=== PATIENT | female | born 1965 | race Caucasian/White ===

== ENCOUNTER 2018-01-04 21:11 | Observation (INO) ==
[2018-01-04 21:56] LABS: Basophils # 0.1 K/mm3 (0-0.2); Basophils % 1.2 % (0.1-2.0); Eosinophils # 0.2 K/mm3 (0.0-0.4); Eosinophils % 3.2 % (0.1-12.0); Hematocrit 41.9 % (37.0-47.0); Hemoglobin 13.6 g/dL (12.2-16.2); Lymphocytes # 2.4 K/mm3 (0.7-4.5); Lymphocytes % 34.5 K/mm3 (10-50); Mean Corpuscular HGB Conc 32.4 g/dL (31.8-35.4); Mean Corpuscular Hemoglobin 28.8 pg (27.0-31.2); Mean Platelet Volume 7.7 fl (7.4-10.4); Monocytes # 0.4 K/mm3 (0.1-1.0); Monocytes % 5.3 % (1.7-9.3); Neutrophils # 3.8 K/mm3 (1.8-7.8); Neutrophils % 55.9 % (37.0-80.0); Platelet Count 302 K/mm3 (142-424); Red Blood Count 4.71 M/mm3 (4.20-5.40); Red Cell Distribution Width 13.6 % (11.5-17.5); White Blood Count 6.9 K/mm3 (4.8-10.8)
[2018-01-04 22:09] LABS: Anion Gap 9.5 mEq/L (5-15); Blood Urea Nitrogen 13 mg/dL (7-18); Carbon Dioxide 30 mmol/L (21.0-32.0); Chloride 106 mmol/L (98-107); Glucose 111 mg/dL (74-106); Potassium 3.5 mmoL/L (3.5-5.1); Sodium 142 mmol/L (136-145)
--- NOTE | 2018-01-04 22:30 | Emergency Department Note ---
ED Disposition Clinical Impression: Chest pain Qualifiers: Chest pain type: precordial pain Qualified Code(s): R07.2 - Precordial pain Disposition: Admitted as Observation Condition on Discharge: Good Referrals: Melquiades Pham MD [Primary Care Provider] - - Critical Care Critical Care Time: No Attestation: On 01/04/18, the high probability of a clinically significant, sudden or life threatening deterioration of the following system(s) required my full and direct attention, intervention and personal management. The time I documented below is in addition to time spent performing reported procedures but includes the following listed in this critical care notation. Medical Decision Making - Medical Records Medical records reviewed: Yes: I reviewed the patient's medical records. - Boo Inquiry Pt receiving controlled substance: No Vital Signs: 01/04/18 21:13 01/04/18 23:08 Temperature 98.2 F Temperature Source Oral Pulse Rate [Right Brachial] 83 80 Respiratory Rate 14 15 Blood Pressure [Right Arm] 151/66 138/81 Blood Pressure Mean [Right Arm] 94 100 02 Sat by Pulse Oximetry 94 L 94 L - Lab Data Lab results reviewed: Yes: I reviewed the patient's lab results. Lab Results 01/04/18 21:45: WBC 6.9, RBC 4.71, Hgb 13.6, Hct 41.9, MCV 89.0, MCH 28.8, MCHC 32.4, RDW 13.6, Plt Count 302, MPV 7.7, Neut % (Auto) 55.9, Lymph % (Auto) 34.5, [place] % (Auto) 5.3, Eos % (Auto) 3.2, Baso % (Auto) 1.2, Neut # (Auto) 3.8, Lymph # (Auto) 2.4, [place] # (Auto) 0.4, Eos # (Auto) 0.2, Baso # (Auto) 0.1 01/04/18 21:45: Sodium 142, Potassium 3.5, Chloride 106, Carbon Dioxide 30, Anion Gap 9.5, BUN 13, Creatinine 0.74, Estimated Creat Clear 107, Estimated GFR 82, Est GFR ( Amer) 99, Glucose 111 H, Calcium 9.0, Troponin I < 0.02 01/04/18 21:45: ESR 20 Result diagrams: 01/04/18 21:45 01/04/18 21:45 Orders (Tests/Meds): ORDERS Category Date Time Status CT head/brain wo con Stat Cat Scan 01/04/18 22:29 Taken XR chest 2V Stat Exams 01/04/18 21:40 Taken ECG Request by /Juan Alberto Stat Y 01/04/18 21:40 Ordered - Radiology Data #1 Image(s): Chest Image Reviewed: Yes I reviewed the patient's radiology image Preliminary Findings: Normal/NAD - ECG Data Tracing #1 I reviewed this ECG and interpreted as documented below: Normal Sinus Rhythm: Yes Ischemic changes: non-specific ST-T wave changes ECG compared to prior tracings: there are no prior tracings available for comparison - Physician Consults Physician Consulted: jarett Reason -: Admission Chest Pain HPI - General Chief Complaint: Chest Pain Stated Complaint: light headed Time Seen by Provider: 01/04/18 21:30 Mode of Arrival: Ambulatory Source of Information: Patient, Medical Record Limitations: No Limitations Description of Symptoms (Recalled from ER Triage Doc. by RN): CP EARLIER TODAY THAT LASTED 10 MIN, REPORTS IT A CRUSHING AND FELT HEAVINESS AND NUMBNESS IN LEFT ARM. REPORTS THE HEAVINESS IS STILL PRESENT IN LEFT ARM - History of Present Illness HPI narrative: pt with acute onset of ant chest pain this am which is new and lasted 10 min and felt vice -like - pt with no known card dis and this pain resolved but she felt dizzy and no syncope and heaviness lt upper ext - these other sx have persisted with no speech or visual sx and no other neuro sx MD complaint: chest pain indicative of cardiac Onset (ago): hour(s) Duration: now resolved Activity at onset: light activity Pain location: substernal Quality: tightness Pain radiation: LUE Relieving factors: nothing Risk Factors for CAD: Family Hx of CAD Treatments prior to or on arrival for Cardiac Chest Pain: none - BENNETT Score Non-Stemi Age of patient: Less than 65 yrs Number of risk factors for CAD: Presence of less than 3 Prior coronary artery stenosis(seen in coronary angiography): Less than 50% ST-Segment deviation on ECG (more than 1 min): Absent Prior aspirin intake: No ASA in the last 7 days Severe anginal chest pain: No or one episode in last 24 hours Elevated cardiac markers(CK-MB or troponin): Absent Non-Stemi Risk Score: 0 - Related Data On Oral Contraceptives: No Home Medications Medication Instructions Recorded Confirmed Levothyroxine Sodium [Synthroid 175 mcg PO DAILY 01/04/18 01/04/18 175mcg (0.175mg) tablet] Zolpidem Tartrate [Ambien 10mg 10 mg PO HS PRN 01/04/18 01/04/18 tablet] Allergies Allergy/AdvReac Type Severity Reaction Status Date / Time No Known Allergies Allergy Verified 01/04/18 21:37 [facility] History I have reviewed the patient's past medical history: Yes ROS Obtained: Yes All systems reviewed & no additional complaints - Constitutional Constitutional: Denies fever(s) - Eyes Eyes: Denies change in vision - ENT Ears, Nose, Mouth, and Throat: Denies sore throat - Cardiovascular Cardiovascular: Reports chest pain, Denies dyspnea, Reports radiating jaw, neck or arm pain, Denies rapid heart rate - Respiratory Respiratory: No cough - Gastrointestinal Gastrointestingal: Denies: abdominal pain - Genitourinary Female Genitourinary: Denies hematuria - Musculoskeletal Musculoskeletal: Denies joint pain - Integumentary/Breasts Skin/Breast: Denies rash - Neurologic Neurologic: Denies headache(s), Denies seizure-like activity Physical Exam - General General appearance: alert, in no apparent distress - Head Head exam: normocephalic - Eye Eye exam: Present: PERRL, EOMI - ENT ENT exam: Present: mucous membranes moist - Neck Neck exam: Present: trachea midline - Respiratory Respiratory exam: Absent: respiratory distress - Cardiovascular Cardiovascular exam: Present: regular rate, systolic murmur - Abdominal Exam Abdominal exam: Present: soft - Extremities Exam Extremities exam: Absent: calf tenderness - Neurological Exam Neurological exam: Present: alert, oriented X3, CN II-XII intact - Psychiatric Psychiatric exam: Present: normal affect - Skin Skin exam: Absent: rash
[2018-01-05 06:44] LABS: Basophils # 0.1 K/mm3 (0-0.2); Basophils % 1.5 % (0.1-2.0); Eosinophils # 0.2 K/mm3 (0.0-0.4); Eosinophils % 3.6 % (0.1-12.0); Hematocrit 41.1 % (37.0-47.0); Lymphocytes % 40.2 K/mm3 (10-50); Mean Corpuscular HGB Conc 31.7 g/dL (31.8-35.4); Mean Corpuscular Hemoglobin 28.2 pg (27.0-31.2); Mean Corpuscular Volume 89.1 fl (81-99); Mean Platelet Volume 7.8 fl (7.4-10.4); Monocytes # 0.3 K/mm3 (0.1-1.0); Monocytes % 6.6 % (1.7-9.3); Neutrophils # 2.3 K/mm3 (1.8-7.8); Neutrophils % 48.2 % (37.0-80.0); Platelet Count 275 K/mm3 (142-424); Red Blood Count 4.62 M/mm3 (4.20-5.40); Red Cell Distribution Width 13.5 % (11.5-17.5); White Blood Count 4.8 K/mm3 (4.8-10.8)
[2018-01-05 07:01] LABS: Anion Gap 9.4 mEq/L (5-15); Calcium 8.4 mg/dL (8.5-10.1); Chol/HDL Ratio 2.6 (1-3.5); Potassium 3.4 mmoL/L (3.5-5.1)
--- NOTE | 2018-01-05 07:33 | Pharmacy Consult Notes ---
[facility] Pharmacy VTE Monitoring - Patient Demographics Admission date: 01/04/18 Report Date: 01/05/18 Time: 07:33 Allergies/Adverse Reactions: Patient Allergies No Known Allergies Allergy (Verified 01/04/18 21:37) Height: 1.52 m Weight: 81.193 kg Patient Problems: Current Active Problems Chest pain (Acute) - VTE Risk Labs: VTE Related Lab Results Hgb 13.0 g/dL (12.2-16.2) 01/05/18 05:45 Hct 41.1 % (37.0-47.0) 01/05/18 05:45 Plt Count 275 K/mm3 (142-424) 01/05/18 05:45 BUN 10 mg/dL (7-18) 01/05/18 05:45 Creatinine 0.70 mg/dL (0.55-1.02) 01/05/18 05:45 Estimated Creat Clear 119 mL/min (0-300) 01/05/18 05:45 Was VTE Risk Assessment Performed: Yes VTE Score: 2 VTE Risk Level: Low Risk - Prophylaxis VTE Prophylaxis Ordered?: Yes Types of VTE Prophylaxis: TEDS Knee High Location of Applied Device: Bilateral Lower Extremeties - VTE Diagnosis Confirmed Treatment or plan recommended: Continue Current Treatment
--- NOTE | 2018-01-05 07:43 | Consult Report ---
Addendum entered and electronically signed by BERNICE Salas 01/05/18 15:16: Echo shows preserved LVEF without wall motion abnormalities. GXT myoview, EKG portion nondiagnostic due to baseline abnormalities and the myoview images show no ischemia with normal LVEF. OK for discharge home from Cardiology standpoint. Add ASA 81 mg daily and follow up in 2 wks Original Note: History of Present Illness Consult date: 01/05/18 Requesting physician: Melquiades Pham Consult reason: chest pain Chief complaint: Chest pain Additional Medical History:: 1. 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 Symptoms were not associated with shortness of breath, nausea, vomiting or diaphoresis. After the chest pain resolved patient was left with some dizziness and left arm discomfort. She did come to the emergency department for further evaluation. CT of the head revealed no acute changes. Chest x-ray was unremarkable. Troponins have returned normal overnight. Patient does have an abnormal EKG with lateral ischemia with no old EKGs for comparison. The 2 EKGs obtained overnight showed no change. Patient denies any history of tobacco use or treatment for diabetes, hypertension or hyperlipidemia. There is no s ignificant family history of coronary artery disease. Patient was admitted for observation overnight. Cardiology consulted for evaluation recommendations. This a.m. the patient relates no further episode of chest discomfort however she does continue to have some left arm heaviness feeling. [facility] History Medical History: Reports:: Heart Murmur Denies:: Cancer, Diabetes Mellitus Type 1, Diabetes Mellitus Type 2, MRSA Other Medical History: Reports: Anemia Other Surgeries: Yes: Amputation: No Fractures: No - *Social History Educational Level: Completed College Smoking Status: Never smoker Alcohol Intake: never Occupational Status: employed Housing: house Household Members: none - Psychiatric History Expresses thoughts of harming self/others: None Suicide Plan Description: No Plan *Family Hx:: Anemia, Cancer, Hyperlipidemia, Hypertension, Thyroid Disorder Meds Home Medications Medication Instructions Recorded Confirmed Type Levothyroxine Sodium [Synthroid 175 mcg PO DAILY 01/04/18 01/05/18 History 175mcg (0.175mg) tablet] Zolpidem Tartrate [Ambien 10mg 10 mg PO HS PRN 01/04/18 01/05/18 History tablet] Sumatriptan Succ/Naproxen Sod 1 each PO NEEDED PRN 01/05/18 01/05/18 History [Treximet 10-60 mg Tablet] Allergies Allergy/AdvReac Type Severity Reaction Status Date / Time No Known Allergies Allergy Verified 01/04/18 21:37 Review of Systems - *Cardiovascular Reports chest pain, Denies shortness of breath, Denies shortness of breath with activity - *Respiratory Denies cough, Denies shortness of breath, Denies shortness of breath with activity - *Gastrointestinal Denies abdominal pain, Denies change in stools, Denies black, tarry stools - *Genitourinary Denies blood in urine - *Musculoskeletal Denies joint pain - *Neurologic Denies headache(s), Denies seizure-like activity Exam Vital signs and Labs for Last 24 Hours: Temp Pulse Resp BP Pulse Ox 98.3 F 70 18 153/72 93 L 01/05/18 00:57 01/05/18 04:00 01/05/18 00:57 01/05/18 00:57 01/05/18 01:23 Laboratory Results - last 24 hr 01/04/18 21:45: WBC 6.9, RBC 4.71, Hgb 13.6, Hct 41.9, MCV 89.0, MCH 28.8, MCHC 32.4, RDW 13.6, Plt Count 302, MPV 7.7, Neut % (Auto) 55.9, Lymph % (Auto) 34.5, [place] % (Auto) 5.3, Eos % (Auto) 3.2, Baso % (Auto) 1.2, Neut # (Auto) 3.8, Lymph # (Auto) 2.4, [place] # (Auto) 0.4, Eos # (Auto) 0.2, Baso # (Auto) 0.1 01/04/18 21:45: Sodium 142, Potassium 3.5, Chloride 106, Carbon Dioxide 30, Anion Gap 9.5, BUN 13, Creatinine 0.74, Estimated Creat Clear 107, Estimated GFR 82, Est GFR ( Amer) 99, Glucose 111 H, Calcium 9.0, Troponin I < 0.02 01/04/18 21:45: ESR 20 01/05/18 02:53: Troponin I < 0.02 01/05/18 05:45: Troponin I < 0.02 01/05/18 05:45: WBC 4.8 D, RBC 4.62, Hgb 13.0, Hct 41.1, MCV 89.1, MCH 28.2, MCHC 31.7 L, RDW 13.5, Plt Count 275, MPV 7.8, Neut % (Auto) 48.2, Lymph % (Auto) 40.2, [place] % (Auto) 6.6, Eos % (Auto) 3.6, Baso % (Auto) 1.5, Neut # (Auto) 2.3, Lymph # (Auto) 2.0, [place] # (Auto) 0.3, Eos # (Auto) 0.2, Baso # (Auto) 0.1 01/05/18 05:45: Sodium 144, Potassium 3.4 L, Chloride 109 H, Carbon Dioxide 29, Anion Gap 9.4, BUN 10, Creatinine 0.70, Estimated Creat Clear 119, Estimated GFR 88, Est GFR ( Amer) 106, Glucose 97, Calcium 8.4 L, Triglycerides 53, Cholesterol 159, LDL Cholesterol 87, VLDL Cholesterol 11, HDL Cholesterol 61, Cholesterol/HDL Ratio 2.6 I & O for Last 24 hours: Intake & Output 01/02/18 01/03/18 01/04/18 01/05/18 11:59 11:59 11:59 11:59 Weight 179 lb - *Routine Neck Exam Present: supple. Absent: JVD, carotid bruit - Routine Chest/Breast/Axilla Exam Chest wall: Present: tenderness - *Routine Respiratory Exam Present: CTA bilaterally. Absent: accessory muscle use, rales, rhonchi, wheezes - *Routine Cardiovascular Exam Present: RRR, murmur. Absent: gallop, rubs Comments: Soft grade 1 out of 6 to 2 out of 6 systolic ejection murmur noted at the left sternal border without radiation. - *Routine Abdominal Exam Present: soft. Absent: tenderness, distended, guarding - *Routine Extremities Exam Absent: edema, calf tenderness - *Routine Neurological Exam Present: alert, oriented X3, moving all extremities Assessment and Plan (1) Abnormal EKG Current visit: Yes Status: Acute Category: Medical Code(s): R94.31 - Abnormal electrocardiogram [ECG] [EKG] (2) Cardiac murmur Current visit: Yes Status: Acute Category: Medical Code(s): R01.1 - Cardiac murmur, unspecified (3) Hypothyroidism Current visit: Yes Status: Acute Category: Medical Code(s): E03.9 - Hypothyroidism, unspecified (4) Chest pain Current visit: Yes Status: Acute Qualifiers: Chest pain type: precordial pain Qualified Code(s): R07.2 - Precordial pain Category: Medical Code(s): R07.9 - Chest pain, unspecified - Assessment and plan all Dx Assessment and Plan for all problems:: 1. Atypical chest pain with a BENNETT score of 0. With the patient's abnormal EKG will obtain an echocardiogram to evaluate for etiology of cardiac murmur along with left ventricular ejection fraction and wall motion. 2. Will have the patient perform an exercise Myoview due to abnormal EKG. 3. Pending the above results, further recommendations to follow.
--- NOTE | 2018-01-05 08:37 | History & Physical Report ---
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 Symptoms were not associated with shortness of breath, nausea, vomiting or diaphoresis. The pain lasted approx 10 minutes and resolved on its own. After the chest pain resolved, the patient was left with some dizziness and left arm paresthesias. She did come to the emergency department for further evaluation. CT of the head revealed no acute changes. Chest x-ray was normal. Cardiology was consulted. Her troponins have been normal. She does have an abnormal EKG with lateral ischemia with no old EKGs for comparison. The 2 EKGs obtained overnight showed no change. She denies any history of tobacco use and there is no significant family history of coronary artery disease. She has had no further episodes of chest discomfort, however she does continue to have some left arm paresthesias. [facility] [place] History Medical History: Reports:: Heart Murmur, Migraine Denies:: Cancer, Diabetes Mellitus Type 1, Diabetes Mellitus Type 2, MRSA Other Medical History: Reports: Anemia, Hypothyroidism Other Surgeries: Yes: , Tubal Ligation Amputation: No Fractures: No - *Social History Educational Level: Completed College Smoking Status: Never smoker Alcohol Intake: never Occupational Status: employed Housing: house Household Members: none - Psychiatric History Expresses thoughts of harming self/others: None Suicide Plan Description: No Plan *Family Hx:: Anemia, Cancer, Hyperlipidemia, Hypertension, Thyroid Disorder Review of Systems - Constitutional Denies fatigue, Denies weakness - Eyes Denies blurry vision, Denies double vision - ENT Denies nasal congestion, Denies sore throat - *Cardiovascular Reports chest pain, Denies rapid, pounding, or irregular heartbeat - *Respiratory Denies cough, Denies shortness of breath - *Gastrointestinal Denies abdominal pain, Denies loose stools, Denies nausea, Denies vomiting - *Genitourinary Denies difficulty urinating, Denies painful urination - *Musculoskeletal Denies joint pain - *Neurologic Reports headache(s), Reports tingling/numbness/burning sensations (left arm), Reports dizziness, Denies seizure-like activity Meds Home Medications Medication Instructions Recorded Confirmed Type Levothyroxine Sodium [Synthroid 175 mcg PO DAILY 01/04/18 01/05/18 History 175mcg (0.175mg) tablet] Zolpidem Tartrate [Ambien 10mg 10 mg PO HS PRN 01/04/18 01/05/18 History tablet] Sumatriptan Succ/Naproxen Sod 1 each PO NEEDED PRN 01/05/18 01/05/18 History [Treximet 10-60 mg Tablet] Allergies Allergy/AdvReac Type Severity Reaction Status Date / Time No Known Allergies Allergy Verified 01/04/18 21:37 Exam Vital signs and Labs for Last 24 Hours: Temp Pulse Resp BP Pulse Ox 97.5 F L 64 16 112/57 96 01/05/18 04:00 01/05/18 04:00 01/05/18 04:00 01/05/18 04:00 01/05/18 04:00 Laboratory Results - last 24 hr 01/04/18 21:45: WBC 6.9, RBC 4.71, Hgb 13.6, Hct 41.9, MCV 89.0, MCH 28.8, MCHC 32.4, RDW 13.6, Plt Count 302, MPV 7.7, Neut % (Auto) 55.9, Lymph % (Auto) 34.5, [place] % (Auto) 5.3, Eos % (Auto) 3.2, Baso % (Auto) 1.2, Neut # (Auto) 3.8, Lymph # (Auto) 2.4, [place] # (Auto) 0.4, Eos # (Auto) 0.2, Baso # (Auto) 0.1 01/04/18 21:45: Sodium 142, Potassium 3.5, Chloride 106, Carbon Dioxide 30, Anion Gap 9.5, BUN 13, Creatinine 0.74, Estimated Creat Clear 107, Estimated GFR 82, Est GFR ( Amer) 99, Glucose 111 H, Calcium 9.0, Troponin I < 0.02 01/04/18 21:45: ESR 20 01/05/18 02:53: Troponin I < 0.02 01/05/18 05:45: Troponin I < 0.02 01/05/18 05:45: WBC 4.8 D, RBC 4.62, Hgb 13.0, Hct 41.1, MCV 89.1, MCH 28.2, MCHC 31.7 L, RDW 13.5, Plt Count 275, MPV 7.8, Neut % (Auto) 48.2, Lymph % (Auto) 40.2, [place] % (Auto) 6.6, Eos % (Auto) 3.6, Baso % (Auto) 1.5, Neut # (Auto) 2.3, Lymph # (Auto) 2.0, [place] # (Auto) 0.3, Eos # (Auto) 0.2, Baso # (Auto) 0.1 01/05/18 05:45: Sodium 144, Potassium 3.4 L, Chloride 109 H, Carbon Dioxide 29, Anion Gap 9.4, BUN 10, Creatinine 0.70, Estimated Creat Clear 119, Estimated GFR 88, Est GFR ( Amer) 106, Glucose 97, Calcium 8.4 L, Triglycerides 53, Cholesterol 159, LDL Cholesterol 87, VLDL Cholesterol 11, HDL Cholesterol 61, Cholesterol/HDL Ratio 2.6 I & O for Last 24 hours: Intake & Output 01/02/18 01/03/18 01/04/18 01/05/18 11:59 11:59 11:59 11:59 Weight 179 lb - Constitutional no acute distress - *Routine HEENT Exam Head: Present: normocephalic, atraumatic Eye: Present: EOMI, PERRL ENT: Present: mucous membranes moist - *Routine Neck Exam Present: supple, full ROM - *Routine Respiratory Exam Present: CTA bilaterally - *Routine Cardiovascular Exam Present: RRR (1/6 systolic murmur) - *Routine Abdominal Exam Present: soft, normoactive bowel sounds. Absent: tenderness - *Routine Extremities Exam Absent: edema - *Routine Skin Exam Present: intact - *Routine Neurological Exam Present: alert, oriented X3 H&P: Result - Impressions Head CT and CXR showed nothing acute. Assessment and Plan (1) Chest pain Current visit: Yes Status: Acute Qualifiers: Chest pain type: precordial pain Qualified Code(s): R07.2 - Precordial pain Category: Medical Code(s): R07.9 - Chest pain, unspecified (2) Abnormal EKG Current visit: Yes Status: Acute Category: Medical Code(s): R94.31 - Abnormal electrocardiogram [ECG] [EKG] (3) Cardiac murmur Current visit: Yes Status: Chronic Category: Medical Code(s): R01.1 - Cardiac murmur, unspecified (4) Hypothyroidism Current visit: Yes Status: Chronic Category: Medical Code(s): E03.9 - Hypothyroidism, unspecified - Assessment and plan all Dx Assessment and Plan for all problems:: Cardiology has seen the patient and ordered an echo. Will await further recommendations per cardiology.
--- NOTE | 2018-01-05 16:02 | Cardiology Report ---
PROCEDURE: 2-D M-mode and color Doppler study INDICATIONS FOR THE TEST: Chest pain + COPD Heart Murmur+ Tobacco Smoking Palpitations Fatigue+ Syncope Edema Hypertension Diabetes Mellitus Rheumatic Fever SOB RIDER Obesity Hyperlipidemia Family History HD+ Additional History chest heaviness, lt arm numbness, MVP PATIENT INFORMATION HEIGHT: 62 WEIGHT: 170 GENDER: Female B/P: 151/66 2-D/M-MODE INTERPRETATION: 2-D MEASUREMENTS OBSERVED VALUES IN CMS Right Ventricular Dimension (RVDd) 2.3 Interventricular Septum (Thickness)(IVsd) 0.8 Left Ventricular Internal Dimensions(LVIDd) 4.6 Left Ventricular Posterior Wall (Thickness)(LVPWd) 0.8 Aortic Root 2.5 Aortic Cusp Separation 2.1 Left Atrial Dimensions (LAD) 2.9 2D 1. Left atrium is normal size, left ventricle is normal size, visually estimated ejection fraction 55% with no regional wall motion abnormality. 2. The right atrium and right ventricle are normal size and contractility. 3. The aortic valve is minimally thickened and fibrosed. 4. The mitral and tricuspid valve are grossly normal. 5. The pulmonic valve is poorly visualized. 6. No significant pericardial effusion noted. DOPPLER INTERROGATION: Doppler interrogation of the aortic, mitral and tricuspid valvular presence of mild aortic, mild mitral and tricuspid regurgitation, tricuspid regurgitation, tricuspid regurgitant jet velocity is insufficient for calculation of the right ventricular systolic pressure, diastolic parameters are inconclusive. CONCLUSION: 1. Normal left ventricular size, preserved left ventricular systolic function, visually estimated ejection fraction 55% with no regional wall motion abnormality, diastolic parameters are inconclusive. 2. Mild aortic, mild mitral and tricuspid regurgitation 3. No significant pericardial effusion noted.
--- NOTE | 2018-01-05 16:54 | Discharge Summary ---
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 Symptoms were not associated with shortness of breath, nausea, vomiting or diaphoresis. The pain lasted approx 10 minutes and resolved on its own. After the chest pain resolved, the patient was left with some dizziness and left arm paresthesias. She did come to the emergency department for further evaluation. CT of the head revealed no acute changes. Chest x-ray was normal. Cardiology was consulted. Her troponins have been normal. She does have an abnormal EKG with lateral ischemia with no old EKGs for comparison. The 2 EKGs obtained overnight showed no change. She denies any history of tobacco use and there is no significant family history of coronary artery disease. She has had no further episodes of chest discomfort, however she does continue to have some left arm paresthesias. Hospital Course Hospital Course: The patient was seen by cardiology and an echo and stress test were ordered. Her echo showed preserved LVEF without wall motion abnormalities. The EKG portion of the stress test was nondiagnostic due to baseline abnormalities and the myoview images showed no ischemia with a normal LVEF. She was stable to be discharged home on an ASA 81mg daily and an increased dose of her thyroid medication as her TSH was elevated during her last office visit. She will f/u with cardiology and in the office of A. Objective Vital signs: Temp Pulse Resp BP Pulse Ox 98.0 F 75 16 121/67 100 01/05/18 11:41 01/05/18 11:41 01/05/18 11:41 01/05/18 11:41 01/05/18 11:41 Narrative: - Constitutional no acute distress - *Routine HEENT Exam Head: Present: normocephalic, atraumatic Eye: Present: EOMI, PERRL ENT: Present: mucous membranes moist - *Routine Neck Exam Present: supple, full ROM - *Routine Respiratory Exam Present: CTA bilaterally - *Routine Cardiovascular Exam Present: RRR (1/6 systolic murmur) - *Routine Abdominal Exam Present: soft, normoactive bowel sounds. Absent: tenderness - *Routine Extremities Exam Absent: edema - *Routine Skin Exam Present: intact - *Routine Neurological Exam Present: alert, oriented X3 Results Labs on day of discharge: Labs from last 24 hours 01/05/18 01/05/18 01/05/18 05:45 05:45 05:45 WBC 4.8 D RBC 4.62 Hgb 13.0 Hct 41.1 MCV 89.1 MCH 28.2 MCHC 31.7 L RDW 13.5 Plt Count 275 MPV 7.8 Neut % (Auto) 48.2 Lymph % (Auto) 40.2 Stevens % (Auto) 6.6 Eos % (Auto) 3.6 Baso % (Auto) 1.5 Neut # (Auto) 2.3 Lymph # (Auto) 2.0 Stevens # (Auto) 0.3 Eos # (Auto) 0.2 Baso # (Auto) 0.1 ESR Sodium 144 Potassium 3.4 L Chloride 109 H Carbon Dioxide 29 Anion Gap 9.4 BUN 10 Creatinine 0.70 Estimated Creat Clear 119 Estimated GFR 88 Est GFR ( Amer) 106 Glucose 97 Calcium 8.4 L Troponin I < 0.02 Triglycerides 53 Cholesterol 159 LDL Cholesterol 87 VLDL Cholesterol 11 HDL Cholesterol 61 Cholesterol/HDL Ratio 2.6 01/05/18 01/04/18 01/04/18 02:53 21:45 21:45 WBC RBC Hgb Hct MCV MCH MCHC RDW Plt Count MPV Neut % (Auto) Lymph % (Auto) Stevens % (Auto) Eos % (Auto) Baso % (Auto) Neut # (Auto) Lymph # (Auto) Stevens # (Auto) Eos # (Auto) Baso # (Auto) ESR 20 Sodium 142 Potassium 3.5 Chloride 106 Carbon Dioxide 30 Anion Gap 9.5 BUN 13 Creatinine 0.74 Estimated Creat Clear 107 Estimated GFR 82 Est GFR ( Amer) 99 Glucose 111 H Calcium 9.0 Troponin I < 0.02 < 0.02 Triglycerides Cholesterol LDL Cholesterol VLDL Cholesterol HDL Cholesterol Cholesterol/HDL Ratio 01/04/18 21:45 WBC 6.9 RBC 4.71 Hgb 13.6 Hct 41.9 MCV 89.0 MCH 28.8 MCHC 32.4 RDW 13.6 Plt Count 302 MPV 7.7 Neut % (Auto) 55.9 Lymph % (Auto) 34.5 Stevens % (Auto) 5.3 Eos % (Auto) 3.2 Baso % (Auto) 1.2 Neut # (Auto) 3.8 Lymph # (Auto) 2.4 Stevens # (Auto) 0.4 Eos # (Auto) 0.2 Baso # (Auto) 0.1 ESR Sodium Potassium Chloride Carbon Dioxide Anion Gap BUN Creatinine Estimated Creat Clear Estimated GFR Est GFR ( Amer) Glucose Calcium Troponin I Triglycerides Cholesterol LDL Cholesterol VLDL Cholesterol HDL Cholesterol Cholesterol/HDL Ratio DS: Diagnosis - Discharge Diagnosis (1) Abnormal EKG Status: Acute (2) Cardiac murmur Status: Chronic (3) Hypothyroidism Status: Chronic (4) Chest pain Status: Acute Discharge Plan - Patient Discharge Instructions ACTIVITY: Continue current activity DIET: continue same diet - Follow up Plan Follow up with: Melquiades Pham MD [Primary Care Provider] - 1 week Alon Arciniega MD [Staff Physician] - 2 weeks Disposition: Home, Self-[facility] Medications: Home Medications Medication Instructions Recorded Confirmed Type Zolpidem Tartrate [Ambien 10mg 10 mg PO HS PRN 01/04/18 01/05/18 History tablet] Sumatriptan Succ/Naproxen Sod 1 each PO NEEDED PRN 01/05/18 01/05/18 History [Treximet 10-60 mg Tablet] Prescriptions/Medication Reconciliation: New Levothyroxine Sodium [Levothyroxine 200mcg (0.2mg) Tab] 200 mcg PO DAILY #30 tab Aspirin [Aspirin 81mg EC Tab] 81 mg PO DAILY #30 tablet. Continue Zolpidem Tartrate [Ambien 10mg tablet] 10 mg PO HS PRN PRN Reason: Sleep Sumatriptan Succ/Naproxen Sod [Treximet 10-60 mg Tablet] 1 each PO NEEDED PRN PRN Reason: Migraine Discontinued Levothyroxine Sodium [Synthroid 175mcg (0.175mg) tablet] 175 mcg PO DAILY
== END 2018-01-05 17:00 | disposition home or self-care (01) ==
LOC: ER 21:11 → 2ND 21:11
PROVIDERS: ADMIT Family Medicine; ATTEND Family Medicine

== ENCOUNTER → 2018-03-03 07:54 | Outpatient (CLI) | payer BC, SELFPAY ==
--- NOTE | 2018-03-03 08:00 | US_ITS ---
US abdomen limited History:Right upper quadrant pain, chest pain Ordering Physician:Melquiades Pham MD Patient Age: 52 years Comparison:None Findings: Pancreas:Unremarkable. No obvious mass or abnormal fluid collection. No ductal dilatation Liver:No focal liver lesions demonstrated. Homogeneous echogenicity. No intrahepatic biliary ductal dilatation evident Right Kidney:Unremarkable. Normal size and echogenicity. No hydronephrosis Gallbladder:No gallstones, gallbladder wall thickening, pericholecystic fluid, or biliary dilatation. Impression:Negative gallbladder/right upper quadrant ultrasound
== END ==
PROVIDERS: PCP Family Medicine; Visit Provider Family Medicine
DX: R10.13 Epigastric pain (principal)
CPT/HCPCS: 76705

== ENCOUNTER → 2019-04-02 12:47 | Outpatient (CLI) | payer OTHER, SELFPAY ==
--- NOTE | 2019-04-02 12:55 | XR_ITS ---
PROCEDURE: XR KNEE RT 3V CLINICAL INDICATION: KNEE PAIN Pain following injury COMPARISON: No exams were available for comparison FINDINGS: No fracture or dislocation. No lytic or blastic change. There is normal mineralization. Minimal osteoarthritic change medial compartment Other findings:None. IMPRESSION: Minimal osteoarthritis otherwise negative Dictated by: Maximus Everett MD 04/02/2019 13:48 Electronically signed by Maximus Everett MD in [facility] 04/02/2019 13:48
== END ==
PROVIDERS: PCP Family Medicine; Visit Provider Nurse Practitioner Family
DX: M25.561 Pain in right knee (principal)
CPT/HCPCS: 73562

== ENCOUNTER → 2019-04-05 16:01 | Outpatient (CLI) | payer OTHER, SELFPAY ==
--- NOTE | 2019-04-05 16:02 | MR_ITS ---
PROCEDURE: MR KNEE RT WO CON CLINICAL INDICATION: KNEE PAIN Right knee pain, pain laterally COMPARISON: XR KNEE RT 3V from 04/02/2019 TECHNIQUE: Routine multiplanar multi echo sequences are performed without gadolinium enhancement. FINDINGS: The cruciate ligaments are intact. The collateral ligaments are intact. There is increased T2 signal involving the head of the fibula with a an irregular area of decreased linear T1 signal consistent with a nondisplaced fracture. No meniscal tear is evident. Patellar cartilage is preserved. There is a small knee joint effusion. There is some increased T2 signal within the soft tissues adjacent to the fibular head consistent with contusion. IMPRESSION: 1. No evidence of internal derangement. 2. Bone bruise with nondisplaced fracture of the fibular head with mild surrounding soft tissue contusion with small knee joint effusion Dictated by: Maximus Everett MD 04/08/2019 13:41 Electronically signed by Maximus Everett MD in [facility] 04/08/2019 13:41
== END ==
PROVIDERS: PCP Family Medicine; Visit Provider Nurse Practitioner Family
DX: M25.561 Pain in right knee (principal)
CPT/HCPCS: 73721

== ENCOUNTER → 2019-05-07 13:23 | Outpatient (CLI) | payer OTHER, SELFPAY ==
--- NOTE | 2019-05-07 13:36 | XR_ITS ---
PROCEDURE: XR KNEE RT 4V CLINICAL INDICATION: knee fx COMPARISON: XR KNEE RT 3V from 04/02/2019 FINDINGS: No fracture or dislocation. No lytic or blastic change. There is normal mineralization. There is mild medial compartment osteoarthritis. Otherwise there is no significant degenerative/arthritic changes. No erosive changes evident. Other findings:None. IMPRESSION: No acute findings. Dictated by: Osbaldo Narayanan 05/07/2019 16:56 Electronically signed by Osbaldo Narayanan in [facility] 05/07/2019 16:56
== END ==
PROVIDERS: PCP Family Medicine; Visit Provider Orthopaedic Surgery
DX: M25.561 Pain in right knee (principal)
CPT/HCPCS: 73564

== ENCOUNTER 2023-03-19 18:19 | Emergency (ER) | payer OTHER, SELFPAY ==
[2023-03-19 18:20] VITALS: BP 161/84; PULSE 94; RESP 20; TEMP 36.5; O2SAT 98; BMI 33.2
--- NOTE | 2023-03-19 18:38 | PC.NURSE ---
DR HEALY AT BEDSIDE
--- NOTE | 2023-03-19 18:41 | CT_ITS ---
PROCEDURE INFORMATION: Exam: CT Pelvis Without Contrast; Skeletal Exam date and time: 03/19/2023 6:47 PM Age: 57 years old Clinical indication: Injury or trauma; Fall; Blunt trauma (contusions or hematomas); Bilateral; Pelvic region; Additional info: Fall, pain TECHNIQUE: Imaging protocol: Computed tomography of the pelvis without contrast. Exam focused on the skeleton. Radiation optimization: All CT scans at this facility use at least one of these dose optimization techniques: automated exposure control; mA and/or kV adjustment per patient size (includes targeted exams where dose is matched to clinical indication); or iterative reconstruction. REPORTING DATA: Count of CT and Cardiac NM exams in prior 12 months: This patient has received 0 known CTs and 0 known cardiac nuclear medicine studies in the 12 months prior to the current study. COMPARISON: 1. CT ABDOMEN PELVIS W CON 04/06/2019 1:[address] LUMBAR SPINE WO CON 03/19/2023 6:44 PM FINDINGS: Bones/joints: Unremarkable. No acute fracture. No dislocation. Soft tissues: Unremarkable. IMPRESSION: No acute findings.
--- NOTE | 2023-03-19 18:41 | XR_ITS ---
PROCEDURE INFORMATION: Exam: XR Left Forearm Exam date and time: 03/19/2023 6:40 PM Age: 57 years old Clinical indication: Injury or trauma; Fall; Blunt trauma (contusions or hematomas); Arm, lower; Left; Additional info: Fall, injury TECHNIQUE: Imaging protocol: Radiologic exam of the left forearm. Views: 2 views. COMPARISON: No relevant prior studies available. FINDINGS: Bones/joints: Normal. Soft tissues: Normal. IMPRESSION: No acute findings.
--- NOTE | 2023-03-19 18:41 | CT_ITS ---
PROCEDURE INFORMATION: Exam: CT Lumbar Spine Without Contrast Exam date and time: 03/19/2023 6:44 PM Age: 57 years old Clinical indication: Injury or trauma; Fall; Blunt trauma (contusions or hematomas); Additional info: Fall, mid L spine TECHNIQUE: Imaging protocol: Computed tomography of the lumbar spine without contrast. Radiation optimization: All CT scans at this facility use at least one of these dose optimization techniques: automated exposure control; mA and/or kV adjustment per patient size (includes targeted exams where dose is matched to clinical indication); or iterative reconstruction. REPORTING DATA: Count of CT and Cardiac NM exams in prior 12 months: This patient has received 0 known CTs and 0 known cardiac nuclear medicine studies in the 12 months prior to the current study. COMPARISON: 1. CT ABDOMEN PELVIS W CON 04/06/2019 1:44 PM 2. CR TSP THORACIC SPINE-3V SWIMMERS 12/28/2016 4:47 PM FINDINGS: Bones/joints: No acute fracture. Normal alignment. No significant disc bulge or herniation. No severe spinal canal stenosis. No significant neural foraminal narrowing. Soft tissues: Unremarkable. IMPRESSION: No acute findings.
--- NOTE | 2023-03-19 18:42 | [facility].EDGENADL ---
Discharge Plan Disposition Patient Disposition: Home, Self-Care Prescriptions Prescriptions: New ibuprofen 800 mg tablet 800 mg PO TID PRN (Reason: pain) 7 Days Qty: 20 0RF cyclobenzaprine 5 mg tablet 5 mg PO TID PRN (Reason: muscle spasm) 5 Days Qty: 15 0RF No Action zolpidem 10 MG tablet 10 mg PO HS PRN (Reason: Sleep) sumatriptan-naproxen 1 EACH tablet 1 each PO NEEDED PRN (Reason: Migraine) levothyroxine 200 MCG tablet 200 mcg PO DAILY Qty: 30 2RF aspirin 81 MG tablet,delayed release (DR/EC) 81 mg PO DAILY Qty: 30 2RF Referrals Follow up/Referrals: Melquiades Pham MD [Primary Care Provider] - See instructions Clinical Impressions Clinical Impression: Fall, Contusion of forearm, left, Injury of lower back, Contusion of sacrum Discharge ED Provider: Khloe Parikh General Adult HPI General Chief complaint: Fall Stated complaint: AO03/19@1615 LT forearm, back pain Time Seen by Provider: 03/19/23 18:32 Mode of Arrival: Ambulatory Limitations: No Limitations Description of Symptoms (Recalled from ER Triage Doc. by RN): Fall from [employer], complains of low back pain and left forearm pain, there is significant swelling and bruising to the left forearm. pt is ambulatory and pms x4 intact History of Present Illness HPI narrative: Patient is a 57-year-old female presenting today with lower back pain and sacrum and coccyx pain left forearm pain after falling off of a float. She was working on a float for [employer] and fell about 3 feet onto her left forearm and with an axial load onto her bottom subsequently developing lower back and sacral pain. Denies any lower extremity weakness saddle anesthesia urine or bowel incontinence etc. Related Data Home Medications Medication Instructions Recorded Confirmed zolpidem 10 mg tablet 10 mg PO HS PRN Sleep 01/04/18 05/07/19 sumatriptan 10 mg-naproxen 60 mg 1 each PO NEEDED PRN Migraine 01/05/18 05/07/19 tablet Previous Rx's Medication Instructions Recorded aspirin 81 mg tablet,delayed 81 mg PO DAILY ##30 01/05/18 release levothyroxine 200 mcg tablet 200 mcg PO DAILY #30 tabs 01/05/18 cyclobenzaprine 5 mg tablet 5 mg PO TID PRN muscle spasm 5 03/19/23 days #15 tabs ibuprofen 800 mg tablet 800 mg PO TID PRN pain 7 days #20 03/19/23 tabs Allergies Allergy/AdvReac Type Severity Reaction Status Date / Time No Known Allergies Allergy Verified 05/07/19 14:33 [facility] Disclaimer: The information contained in this section may have been updated after the patient was seen, as this information can be updated by other users. Social History Smoking Status: Never smoker alcohol intake: never current occupational status: employed Travel in the last 8 weeks: None household members: none housing: house current occupation: teacher current occupational exposures/hazards: No caffeine: Yes ROS Obtained: Yes All systems reviewed & no additional complaints except as documented Physical Exam General General appearance: alert Respiratory Respiratory exam: Present normal lung sounds bilaterally Cardiovascular Cardiovascular exam: Present regular rate; Absent tachycardia Extremities Exam Extremities exam: Present other (Left forearm there is ecchymosis and soft tissue swelling over the mid forearm on the ulnar aspect neurovascular intact she has tenderness region) Back Exam Back exam: Present other (Midline lower spine and sacral and coccygeal tenderness no step-offs or deformities normal neurovascular exam distal to this) Back 1 view image: 1. ttp Neurological Exam Neurological exam: Present alert and oriented X3 Medical Decision Making Boo Inquiry Pt receiving controlled substance: No Vital Signs: 03/19/23 18:20 Temperature 97.7 F Temperature Source Oral Pulse Rate [Right Radial] 94 H Respiratory Rate 20 Blood Pressure [Right Arm] 161/84 H Blood Pressure Mean [
--- NOTE | 2023-03-19 18:59 | PC.NURSE ---
Rounded on pt. Warm blanket provided. No other needs voiced and call light within reach.
[2023-03-19 19:25] VITALS: BP 140/79; PULSE 74; RESP 20; TEMP 36.9; O2SAT 97
== END 2023-03-19 19:30 | disposition home or self-care (01) ==
PROVIDERS: Emergency Provider Student in an Organized Health Care Education/Training Program; PCP Family Medicine
DX: S30.0XXA Contusion of lower back and pelvis, initial encounter (principal); S50.12XA Contusion of left forearm, initial encounter; M54.50 Low back pain, unspecified; W18.30XA Fall on same level, unspecified, initial encounter
CPT/HCPCS: 72131; 72192; 73090; 99285